=== PATIENT | female | born 1955 | race Hispanic/Latino ===

== ENCOUNTER 2023-10-11 06:45 | Day surgery (SDC) | payer OTHER ==
[2023-10-09 12:00] LABS: BASOPHILS # (AUTO) 0.06 K/uL (0.00-0.20); BASOPHILS % (AUTO) 0.7 % (0.0-5.0); EOSINOPHILS # (AUTO) 0.12 K/uL (0.00-0.70); EOSINOPHILS % (AUTO) 1.4 % (0.0-8.0); HEMATOCRIT 37.3 % (36-48); IMMATURE GRANULOCYTE ABSOLUTE 0.04 K/uL (0-1); LYMPHOCYTES # (AUTO) 3.2 K/uL (1.0-4.8); LYMPHOCYTES % (AUTO) 38.6 % (21.0-51.0); MEAN CORPUSCULAR HGB CONC 33.2 g/dL (32.0-36.0); MEAN CORPUSCULAR VOLUME 90.1 fL (79-99); MONOCYTES # (AUTO) 0.5 K/uL (0.1-1.0); MONOCYTES % (AUTO) 5.7 % (3.0-13.0); NEUTROPHILS # (AUTO) 4.5 K/uL (1.8-7.7); NEUTROPHILS % (AUTO) 53.1 % (40.0-77.0); PLATELET COUNT (AUTO) 326 K/uL (130-400); RED BLOOD CELL COUNT(AUTO) 4.14 MIL/uL (4.00-5.50); RED CELL DISTRIBUTION WIDTH 13.8 % (11.0-15.5); WHITE BLOOD COUNT (AUTO) 8.4 K/uL (4.8-10.8)
[2023-10-09 12:23] LABS: CREATININE 1.6 mg/dL (0.5-1.0); POTASSIUM 5.1 mmol/L (3.5-5.1)
[2023-10-09 12:26] VITALS: BP 131/64; PULSE 75; RESP 18
[2023-10-11] VITALS (17 sets, daily range): BP systolic 98–165; BP diastolic 36–77; PULSE 69–91; RESP 11–19
[~2023-10-11] VITALS: Ht 157.5 cm; Wt 77.4 kg
[~2023-10-11 06:45] MED LIST: ATOR40TA71 PO; DAPA1TAB3 PO; DOCU100T PO; FERS325 PO; FURO20TA4 PO; GLIM4TAB36 PO; INSU3INS5 SQ; KETO5DRO40 OS; LISI5TAB21 PO; METO25TA6 PO; MOXI3DRO12 OS; OMEG100014 PO; PANT40TA54 PO; PLEC3TAB2 PO; PRED5DRO17 OS
[2023-10-11] MEDS: ceFAZolin SODIUM 2 GM VIAL ONE (07:09)
[2023-10-11] MEDS ORDERED: BUPIvacaine/PF 0.25% 30ML VIAL IJ ONE ×2 (07:27)
[2023-10-11] MEDS ORDERED: dexaMETHasone SOD PHOSPHATE 10MG/ML 1ML VIAL ONE (07:34)
[2023-10-11] MEDS ORDERED: LIDOCAINE PF 100MG/5ML (2%) SYRINGE 5ML ONE (07:34)
[2023-10-11] MEDS ORDERED: GLYCOPYRROLATE 0.2 MG/ML 5 ML VIAL ONE (07:35)
[2023-10-11] MEDS ORDERED: ONDANSETRON 4MG INJ ONE (07:35)
[2023-10-11] MEDS ORDERED: NEOSTIGMINE METHYLSULFATE 1MG/ML IV ONE (07:35)
[2023-10-11] MEDS ORDERED: proPOFol 10 MG/ML 20ML VIAL IV ONE (07:35)
[2023-10-11] MEDS ORDERED: rocuRONium bROMide 10MG/1ML 5ML VL ONE ×2 (07:36→08:25)
[2023-10-11] MEDS ORDERED: MIDAZOLAM HCL 1 MG/ML 2ML VIAL ONE (07:36)
[2023-10-11] MEDS ORDERED: SUCCINYLCHOLINE CHLORIDE 20 MG/ML 10 ML VIAL ONE (07:36)
[2023-10-11] MEDS ORDERED: FENTanyl CITRate PF 50 MCG/1 ML 2ML VIAL ONE (07:37)
[2023-10-11] MEDS: 0.9%NACL 1000ML 1,000 ML IV ONE (07:47)
[2023-10-11] MEDS: ceFAZolin SODIUM 2 GM VIAL IVPB ONE (08:00)
[2023-10-11] MEDS: BUPIvacaine/PF 0.25% 30ML VIAL IJ ONE (09:21)
[2023-10-11] MEDS: ONDANSETRON 4MG INJ ONE (10:27)
[2023-10-11] MEDS: acetaMINOPHEN 1,000 MG/100 ML VIAL IV ONE (10:28)
[2023-10-11] MEDS: MEPERIDINE-PF 25 MG/ML SYG ONE (10:28)
[2023-10-11] MEDS: METOCLOPRAMIDE 10 MG/2 ML VIAL ONE (10:28)
== END 2023-10-11 11:33 | disposition home or self-care (01) ==
LOC: DAH 06:45
PROVIDERS: ATTEND Surgery
DX: K80.10 Calculus of gallbladder with chronic cholecystitis without obstruction (principal); K82.8 Other specified diseases of gallbladder; K21.9 Gastro-esophageal reflux disease without esophagitis; I25.10 Atherosclerotic heart disease of native coronary artery without angina pectoris; E11.9 Type 2 diabetes mellitus without complications; E78.5 Hyperlipidemia, unspecified; I11.0 Hypertensive heart disease with heart failure; I50.9 Heart failure, unspecified; Z95.5 Presence of coronary angioplasty implant and graft; D50.9 Iron deficiency anemia, unspecified; D51.9 Vitamin B12 deficiency anemia, unspecified; Z79.4 Long term (current) use of insulin; Z79.899 Other long term (current) drug therapy
CPT/HCPCS: 80048; 85025; 86850; 86900; 86901; 36415; 93005; 47563; 82948 ×2; 88304; A6260; A4600; A4663; J7030 ×2; A4215 ×2; J3010; J1100; J0330; J0665 ×3; J3490 ×3; J2001; J2250; J2704; J2405 ×2; J2710; J2175; J2765; J0690 ×2; G0168; A4930; A4223; A4213; A4222; A4221